=== PATIENT | male | born 1980 | race Caucasian/White ===

== ENCOUNTER 2016-06-05 16:45 | Emergency (ER) | payer SELFPAY ==
[2016-06-05 18:41] VITALS: BP 132/84
--- NOTE | 2016-06-05 19:07 | RAD ---
HISTORY: Blunt trauma to right lateral ribs, pain COMPARISONS: None VIEWS: 4, Frontal view of the chest with frontal and oblique views of the right hemithorax. FINDINGS: There is no displaced rib fracture or pneumothorax. The visualized lungs are clear. IMPRESSION: NO APPRECIABLE DISPLACED RIB FRACTURE OR PNEUMOTHORAX.
[2016-06-05] MEDS ORDERED: oxyCODONE/Acetamin 5/325 MG* TAB PO ONE (19:25)
[2016-06-05] MEDS ORDERED: HYDROcodone/ACETAMIN 5-325 MG* 1 TAB PO ONE (19:38)
--- NOTE | 2016-06-05 21:57 | UC ---
Back Pain HPI - HPI Summary HPI Summary: Patient arrives to with CC of right sided rib pain after falling on a tool at work 3 days ago. He states he felt pain immediately of 12/26, but continued working. He had the next 2 days off work and was still experiencing pain. However, today has worsening pain in his right side and SOB. Denies chest pain or pressure. Denies back pain or other symptoms. Pain is localized over right rib area and does not radiate. - History of Current Complaint Chief Complaint: UCTrauma Stated Complaint: RIB INJURY/FELL AT WORK 2 DAYS AGO Time Seen by Provider: 06/05/16 18:42 Hx Obtained From: Patient Onset/Duration: Sudden Onset Timing: Constant Severity Initially: Moderate Severity Currently: Severe Pain Intensity: 8 Pain Scale Used: 0-10 Numeric Back Pain: Is Discrete @ - right rib area over anterior torso Character: Sharp, Aching Aggravating: Movement, Cough Alleviating: Position Associated Signs And Symptoms: Positive: Negative Related History: Occupational Injury - Risk Factors AAA Risk Factors: Negative TAD Risk Factors: Negative Cauda Equina Risk Factors: Negative Epidural Abscess Risk Factors: Negative - Allergies/Home Medications Allergies/Adverse Reactions: Allergies Allergy/AdvReac Type Severity Reaction Status Date / Time No Known Allergies Allergy Verified 09/01/12 08:21 Home Medications: Home Medications Ibuprofen [Advil] 400 mg PO Q6HR PRN 06/05/16 [History Confirmed 06/05/16] PMH/Surg Hx/FS Hx/Imm Hx Previously Healthy: Yes - Surgical History Surgical History: None - Family History Known Family History: Positive: Unknown - Social History Occupation: Employed Full-time Lives: With Family Alcohol Use: Occasionally Substance Use Type: None Smoking Status (MU): Heavy Every Day Tobacco Smoker Type: Cigarettes Amount Used/How Often: 1 PPD Length of Time of Smoking/Using Tobacco: 5 YRS Have You Smoked in the Last Year: Yes Review of Systems Constitutional: Negative Skin: Negative Respiratory: Shortness Of Breath Cardiovascular: Negative Gastrointestinal: Negative Motor: Decreased ROM - unable to twist at hips or abduct at right shoulder Musculoskeletal: Myalgia - right rib pain Neurological: Negative Psychological: Negative All Other Systems Reviewed And Are Negative: Yes Physical Exam Triage Information Reviewed: Yes Appearance: Well-Appearing, Well-Nourished, Pain Distress Vital Signs: Initial Vital Signs Temp 99.0 F 06/05/16 18:37 Pulse 93 06/05/16 18:37 Resp 16 06/05/16 18:37 BP 132/84 06/05/16 18:37 Pulse Ox 100 06/05/16 18:37 Vital Signs Reviewed: Yes Eye Exam: Normal Eyes: Positive: Conjunctiva Clear Neck exam: Normal Neck: Positive: Supple, Nontender Respiratory: Positive: Chest non-tender, Lungs clear, Other: - chest nontender. tender over right rib area Cardiovascular Exam: Normal Abdomen Description: Positive: Nontender, No Organomegaly Bowel Sounds: Positive: Present Musculoskeletal: Positive: Strength Limited @, ROM Limited @ - abduction of right arm Neurological Exam: Normal Neurological: Positive: Alert Skin Exam: Normal Diagnostics - Radiology No standard instances Xray Interpretation: No Acute Changes Radiology Interpretation Completed By: Radiologist Back Pain Course/Dx - Course Course Of Treatment: Patient encouraged to rest and use ibuprofen. For breakthrough pain or at night before bed, may use the stronger pain medication. If symptoms worsen or having difficulty breathing, return to . Patient experiencing SOB, but lungs sound clear, no pathology on xray. Will treat as rib contusion. - Differential Dx/Diagnosis Differential Diagnosis/HQI/PQRI: Fracture, Strain, Sprain Provider Diagnoses: Rib Contusion Discharge - Discharge Plan Condition: Stable Disposition: HOME Prescriptions: oxyCODONE/Acetamin 10/325(NF) [Percocet 10/325 (NF)] 1 tab PO Q6H #10 tab MDD 4 Patient Education Materials: Rib Contusion (ED) Referrals: No Primary Care Phys,NOPCP [Primary Care Provider] - Additional Instructions: Ibuprofen 600mg three times daily with meals. Oxycodone up to 4 times daily as needed for pain. Follow up with PCP.
== END 2016-06-05 19:48 | disposition home or self-care (01) ==
LOC: UCCORT 16:45
DX: S20.211A Contusion of right front wall of thorax, initial encounter (principal); W18.00XA Striking against unspecified object with subsequent fall, initial encounter; Y93.9 Activity, unspecified; Y92.89 Other specified places as the place of occurrence of the external cause; Y99.0 Civilian activity done for income or pay; F17.210 Nicotine dependence, cigarettes, uncomplicated
CPT/HCPCS: 99212; A9270-GY; G0463

== ENCOUNTER 2017-04-04 13:05 | Emergency (ER) | payer BC ==
[2017-04-04 14:24] VITALS: BP 128/86
--- NOTE | 2017-04-04 14:33 | UC ---
Skin Complaint HPI - HPI Summary HPI Summary: 37 year old male presents with swelling of left palm with possible foreign body. - History of Current Complaint Chief Complaint: UCSkin Time Seen by Provider: 04/04/17 14:30 Stated Complaint: LEFT HAND SWOLLEN Hx Obtained From: Patient Onset/Duration: Sudden Onset Skin Exposure Onset/Duration: Minutes Ago Onset Severity: Moderate Current Severity: Moderate Location: Hand (Left) - Allergy/Home Medications Allergies/Adverse Reactions: Allergies Allergy/AdvReac Type Severity Reaction Status Date / Time No Known Allergies Allergy Verified 04/04/17 14:24 Review of Systems Constitutional: Negative Skin: Other - left palm soft tissue swelling Eyes: Negative ENT: Negative Respiratory: Negative Cardiovascular: Negative Gastrointestinal: Negative Genitourinary: Negative Motor: Negative Neurovascular: Negative Musculoskeletal: Negative Neurological: Negative Psychological: Negative All Other Systems Reviewed And Are Negative: Yes PMH/Surg Hx/FS Hx/Imm Hx Previously Healthy: Yes - Surgical History Surgical History: None - Family History Known Family History: Positive: Unknown - Social History Alcohol Use: Rare Substance Use Type: None Smoking Status (MU): Heavy Every Day Tobacco Smoker Type: Cigarettes Amount Used/How Often: 1 PPD Length of Time of Smoking/Using Tobacco: 5 YRS Have You Smoked in the Last Year: Yes Physical Exam Triage Information Reviewed: Yes Vital Signs: Initial Vital Signs Temp 36.8 C 04/04/17 14:19 Pulse 86 04/04/17 14:19 Resp 16 04/04/17 14:19 BP 128/86 04/04/17 14:19 Pulse Ox 100 04/04/17 14:19 Vital Signs Reviewed: Yes Eye Exam: Normal ENT Exam: Normal Dental Exam: Normal Neck exam: Normal Neck: Positive: 1 Respiratory Exam: Normal Cardiovascular Exam: Normal Abdominal Exam: Normal Musculoskeletal Exam: Normal Neurological Exam: Normal Psychological Exam: Normal Skin: Positive: Other - left palm soft tissue swelling Course/Dx - Course Course Of Treatment: INCISION/DRAINAGE OF LEFT PALM ABSCESS WITH # 11 BLADE AND TOPICAL LIDOCAINE. DRESSED WITH STERI STRIPS/TELFA/KERLIX - Diagnoses Provider Diagnoses: left palm soft swelling. left palm abscess Discharge - Discharge Plan Condition: Stable Disposition: HOME Prescriptions: Sulfamethox/Trimethoprim DS* [Bactrim DS 800/160 TAB*] 1 tab PO BID #20 tab Patient Education Materials: Soft Tissue Foreign Body (ED), Abscess (ED) Referrals: No Primary Care Phys,NOPCP [Primary Care Provider] -
[2017-04-04] MEDS ORDERED: Lidocaine 1% MPF* 2 ML VIAL INJ ONE (14:54)
--- NOTE | 2017-04-04 14:57 | RAD ---
INDICATION: Left hand swelling COMPARISON: None. TECHNIQUE: 3 views of the left hand were obtained. FINDINGS: The adequately corticated bones are in normal alignment. No significant focal osseous abnormality or fracture is seen. Joint spaces appear maintained. No subcutaneous foreign body is visualized. IMPRESSION: Normal left hand radiograph. If the patient's symptoms persist, follow-up imaging is recommended.
[2017-04-04] MEDS ORDERED: Tetan/Diph/Pertus SYR(Tdap)* 0.5 ML SYR(BOOSTRIX) use SYR IM ONE (15:15)
== END 2017-04-04 15:45 | disposition home or self-care (01) ==
LOC: UCCORT 13:05
DX: L02.512 Cutaneous abscess of left hand (principal); Z23 Encounter for immunization; F17.210 Nicotine dependence, cigarettes, uncomplicated
CPT/HCPCS: 10060; 87070; 87205; 87640; 87641; 90471; 90715; 99212; G0463

== ENCOUNTER 2017-04-05 17:20 | Emergency (ER) | payer BC ==
--- NOTE | 2017-04-05 18:44 | UC ---
Skin Complaint HPI - HPI Summary HPI Summary: 37 YEAR OLD MALE PRESENTS FOR A RECHECK OF HIS LEFT HAND AFTER AN I/D WAS DONE 04/05/17 - History of Current Complaint Time Seen by Provider: 04/05/17 18:43 Stated Complaint: RECHECK LEFT HAND INJURY Hx Obtained From: Patient Onset/Duration: Lasting Weeks Skin Exposure Onset/Duration: Days Ago Onset Severity: Mild Current Severity: Mild - Allergy/Home Medications Allergies/Adverse Reactions: Allergies Allergy/AdvReac Type Severity Reaction Status Date / Time No Known Allergies Allergy Verified 04/05/17 19:18 Review of Systems Constitutional: Negative Skin: Other - RIGHT HAND WOUND CHECK Eyes: Negative ENT: Negative Respiratory: Negative Cardiovascular: Negative Gastrointestinal: Negative Genitourinary: Negative Motor: Negative Neurovascular: Negative Musculoskeletal: Negative Neurological: Negative Psychological: Negative All Other Systems Reviewed And Are Negative: Yes PMH/Surg Hx/FS Hx/Imm Hx Previously Healthy: Yes - Surgical History Surgical History: None - Family History Known Family History: Positive: Unknown - Social History Alcohol Use: Rare Substance Use Type: None Smoking Status (MU): Heavy Every Day Tobacco Smoker Type: Cigarettes Amount Used/How Often: 1 PPD Length of Time of Smoking/Using Tobacco: 5 YRS Have You Smoked in the Last Year: Yes Physical Exam Triage Information Reviewed: Yes Vital Signs Reviewed: Yes Eye Exam: Normal ENT Exam: Normal Dental Exam: Normal Neck exam: Normal Neck: Positive: 1 Respiratory Exam: Normal Cardiovascular Exam: Normal Abdominal Exam: Normal Musculoskeletal Exam: Normal Neurological Exam: Normal Psychological Exam: Normal Skin: Positive: Other - RIGHT HAND I/D WOUND CHECK Course/Dx - Diagnoses Provider Diagnoses: WOUND CHECK RIGHT HAND I/D Discharge - Discharge Plan Condition: Stable Disposition: HOME Prescriptions: Mupirocin 2% OINT* [Bactroban 2 % Oint*] 1 applic TOPICAL BID #1 tube Patient Education Materials: Acute Wound Care (ED) Referrals: No Primary Care Phys,NOPCP [Primary Care Provider] -
[2017-04-05 19:18] VITALS: BP 136/77
== END 2017-04-05 19:33 | disposition home or self-care (01) ==
LOC: UCCORT 17:20
DX: Z48.00 Encounter for change or removal of nonsurgical wound dressing (principal); F17.210 Nicotine dependence, cigarettes, uncomplicated
CPT/HCPCS: 99212; G0463